=== PATIENT | male | born 1985 | race African-American/Black ===

== ENCOUNTER 2020-07-30 20:55 | Emergency (ER) | payer MEDICAID ==
[~2020-07-30] VITALS: Ht 182.9 cm; Wt 91.0 kg
[2020-07-30] MEDS ORDERED: IBUPROFEN 600MG TABLET PO STA (21:57)
[2020-07-30] MEDS ORDERED: TETANUS, DIPHTHERIA, PERTUSSIS VAC/PF 0.5ML (>7YR OLD) IM ONE (22:00)
[2020-07-30] MEDS ORDERED: LIDOCAINE HCL/PF 1% 10 MG/ML 5ML VIAL IJ ONE (22:00)
[2020-07-31 00:08] VITALS: BP 161/86
== END 2020-07-31 00:08 | disposition home or self-care (01) ==
LOC: ER 20:55
DX: S01.511A Laceration without foreign body of lip, initial encounter (principal); Y08.89XA Assault by other specified means, initial encounter; Y93.89 Activity, other specified; Y92.89 Other specified places as the place of occurrence of the external cause; Y99.8 Other external cause status; R07.89 Other chest pain
CPT/HCPCS: 12011; 71045; 90715; 99283; J3490; Z7610

== ENCOUNTER 2020-08-07 18:16 | Emergency (ER) | payer MEDICAID ==
[~2020-08-07] VITALS: Ht 182.9 cm; Wt 125.0 kg
[2020-08-07 18:26] VITALS: BP 155/108
== END 2020-08-07 20:18 | disposition home or self-care (01) ==
LOC: ER 18:16
DX: S01.511D Laceration without foreign body of lip, subsequent encounter (principal); I10 Essential (primary) hypertension; Z48.00 Encounter for change or removal of nonsurgical wound dressing; X58.XXXD Exposure to other specified factors, subsequent encounter
CPT/HCPCS: 99281; Z7610